=== PATIENT | male | born 1980 | race Caucasian/White ===

== ENCOUNTER → 2018-11-12 | Outpatient (CLI) | payer MEDICAID | LOC: COL.RAD 07:30 | DX: B19.10 Unspecified viral hepatitis B without hepatic coma (principal) ==

== ENCOUNTER → 2019-06-23 | Outpatient (CLI) | payer MEDICAID | LOC: COL.RAD 09:00 | DX: B19.10 Unspecified viral hepatitis B without hepatic coma (principal) ==

== ENCOUNTER → 2019-12-20 | Outpatient (CLI) | payer MEDICAID | LOC: COL.RAD 09:40 | DX: B19.10 Unspecified viral hepatitis B without hepatic coma (principal); K82.8 Other specified diseases of gallbladder ==

== ENCOUNTER → 2020-08-04 | Outpatient (CLI) | payer MEDICAID ==
[2020-08-04 13:57] LABS: BASO % 0.5 % (0.0-2.0); EOS # 0.4 (0.0-0.7); EOS % 5.3 % (0-4.0); GRAN # 3.4 (1.4-6.5); GRAN % 51.5 % (42.2-75.2); HEMATOCRIT 43.4 % (42.0-52.0); HEMOGLOBIN 14.9 g/dl (13.5-18.0); LYMPH # 2.3 (1.2-3.4); LYMPH % 34.4 % (20.0-51.0); MEAN CELL VOLUME 87 fl (80.0-100.0); MEAN CORPUSCULAR HEMOGLOBIN 30 pg (27.0-31.0); MEAN CORPUSCULAR HGB CONC 34 g/dl (33.0-37.0); MEAN PLATELET VOLUME 10.4 fl (7.4-10.4); MONO # 0.5 (0.1-0.6); PLATELET COUNT 167 K/mm3 (130-400); RED BLOOD COUNT 4.99 M/mm3 (4.20-5.60); REDCELL DISTRIBUTION WIDTH-CV 12.7 % (11.5-14.5)
[2020-08-04 14:10] LABS: PROTHROMBIN TIME 11.6 SECONDS (9.7-12.8)
[2020-08-04 14:46] LABS: ALBUMIN 4.4 gm/dL (3.5-5.0); BILIRUBIN,TOTAL 0.4 mg/dL (0.0-1.0); CALCIUM 9.1 mg/dL (8.4-10.2); CREATININE, serum 0.78 (0.66-1.25); TOTAL PROTEIN 7.5 gm/dL (6.4-8.2)
[2020-08-04 23:51] LABS: HEPATITIS B SURFACE ANTIBODY 86.1 (()); HEPATITIS B SURFACE ANTIGEN Negative (Negative)
== END ==
LOC: COL.LAB 12:36
PROVIDERS: Student in an Organized Health Care Education/Training Program
DX: B19.10 Unspecified viral hepatitis B without hepatic coma (principal)

== ENCOUNTER → 2020-08-04 | Outpatient (CLI) | payer MEDICAID | LOC: COL.RAD 14:15 | DX: B19.10 Unspecified viral hepatitis B without hepatic coma (principal) ==

== ENCOUNTER → 2022-03-22 | Outpatient (CLI) | payer MEDICAID ==
[2022-03-22 15:33] LABS: BASO % 0.5 % (0.0-2.0); EOS # 0.4 K/mm3 (0.0-0.7); EOS % 5.7 % (0.0-4.0); GRAN # 3.3 K/mm3 (1.4-6.5); GRAN % 52.3 % (42.2-75.2); HEMATOCRIT 46.1 % (42.0-52.0); HEMOGLOBIN 15.6 g/dl (13.5-18.0); LYMPH % 32.2 % (20.0-51.0); MEAN CELL VOLUME 85 fl (80.0-100.0); MEAN CORPUSCULAR HEMOGLOBIN 29 pg (27-31); MEAN CORPUSCULAR HGB CONC 34 g/dl (33.0-37.0); MEAN PLATELET VOLUME 10.2 fl (7.4-10.4); MONO # 0.6 K/mm3 (0.1-0.6); PLATELET COUNT 173 K/mm3 (130-400); REDCELL DISTRIBUTION WIDTH-CV 12.7 % (11.5-14.5)
[2022-03-22 15:49] LABS: ALBUMIN 4.3 gm/dL (3.5-5.0); BILIRUBIN,TOTAL 0.6 mg/dL (0.2-1.2); CALCIUM 9.2 mg/dL (8.4-10.2); CREATININE, serum 0.86 mg/dL (0.72-1.25); POTASSIUM 4.2 mmol/L (3.5-4.5); TOTAL PROTEIN 7.7 gm/dL (6.2-8.1)
[2022-03-23 00:39] LABS: HEPATITIS B SURFACE ANTIBODY 39.5 (()); HEPATITIS B SURFACE ANTIGEN Negative (Negative)
== END ==
LOC: COL.LAB 13:53 → COL.RAD 14:15
PROVIDERS: Student in an Organized Health Care Education/Training Program
DX: B18.1 Chronic viral hepatitis B without delta-agent (principal)

== ENCOUNTER → 2022-05-02 | Outpatient (CLI) | payer MEDICAID ==
[~2022-05-02] VITALS: Ht 167.6 cm; Wt 94.6 kg
[2022-05-02] VITALS (16 sets, daily range): BP systolic 131–165; BP diastolic 83–106; PULSE 58–83
[~2022-05-02] MED LIST: VEMLIDY25 MG PO
--- NOTE | 2022-05-02 15:00 | NUR ---
Pt given apple juice and pudding to eat. Resp even and easy. Denies needing anything at this time.
== END ==
LOC: COL.RAD 11:44
DX: B18.1 Chronic viral hepatitis B without delta-agent (principal)
CPT/HCPCS: 32109